=== PATIENT | male | born 1970 | race African-American/Black ===

== ENCOUNTER 2018-12-18 15:03 | Inpatient (IN) ==
[2018-12-18 16:48] LABS: ALLEN TEST YES; BE 2.6 mmoll (-3.0-3.0); BLOOD TYPE ARTERIAL; HCO3-(ACT) 26.8 mmoll (20.0-26.0); METHB 0.7 % (0.0-1.5); O2(CT) 14.5 mL/dL (15.0-23.0); O2HB 90.9 % (95.0-99.0); PO2(98.6) 81 mmHg (60-100); SAMPLE BLOOD; SAO2 98.1 % (95.0-100.0); THB 11.3 g/dL (11.5-17.4); pH(98.6) 7.36 (7.35-7.45)
[2018-12-18 16:51] LABS: MODALITY ROOM AIR
[2018-12-18 16:52] LABS: PCO2(98.6) 51 mmHg (35-45)
--- NOTE | 2018-12-18 16:52 | EKG Report ---
Test Performed on : 12/18/2018 4:45:32 PM Test Reason : MENTAL STATUS CHANGE, BACK PAIN Blood Pressure : / mmHG Vent. Rate : 066 BPM Atrial Rate : 066 BPM P-R Int : 160 ms QRS Dur : 086 ms QT Int : 396 ms P-R-T Axes : 062 -52 040 degrees QTc Int : 415 ms Normal sinus rhythm. Left axis deviation Abnormal ECG When compared with ECG of 31-DEC-2016 16:17, QRS axis shifted left Confirmed by Jose REZA, Bhavin Gagnon ([id number]) on 12/20/2018 11:37:28 AM
[2018-12-18 17:18] LABS: BASO# 0.05 X1000 (0.0-0.2); BASO% 0.6 % (0.0-0.8); EOS# 0.29 X1000 (0.0-0.7); EOS% 3.6 % (0.0-10.0); HEMATOCRIT 35.6 % (42.0-52.0); HEMOGLOBIN 11.6 g/dL (14.0-18.0); LYMPH# 2.65 X1000 (1.2-3.4); LYMPH% 33.2 % (20.5-51.1); MCH 27.4 PG (27-31); MCHC 32.6 g/dL (33-37); MONO# 0.89 X1000 (0.11-0.59); MONO% 11.2 % (1.7-9.3); MPV 9.8 FL (7.4-10.4); NEUT% 51.4 % (42.2-75.2); PLT 240 X1000 (130-400); RBC 4.24 XMIL (4.7-6.1); RDW 14.8 % (11.5-14.5); WBC 7.98 X1000 (4.8-10.8)
[2018-12-18 17:42] LABS: AGAP 8; ALBUMIN 3.4 g/dL (3.5-5.0); ALKALINE PHOSPHATASE 86 U/L (32-122); BUN 13 mg/dL (8-22); CALCIUM 8.2 mg/dL (8.8-10.2); CHLORIDE 103 mmol/L (98-107); COSMO 278; CREATININE 0.9 mg/dL (0.7-1.2); ESTIMATED GFR > 60; GLUCOSE 105 mg/dL (70-104); GOT 24 U/L (10-34); GPT 28 U/L (10-44); POTASSIUM 3.9 mmol/L (3.5-5.1); SODIUM 139 mmol/L (136-145); TCO2 28 mmol/L (25-35); TOTAL BILIRUBIN 0.37 mg/dL (0.20-1.00); TOTAL PROTEIN 6.7 g/dL (6.3-8.3)
--- NOTE | 2018-12-18 17:46 | Diag Imaging Result Doc PS360 ---
EXAM: CT HEAD W/O CONTRAST HISTORY: MENTAL STATUS CHANGE, BACK PAIN TECHNIQUE: CT head without contrast COMPARISON: 12/31/2016 FINDINGS: No parenchymal hemorrhage. No epidural or subdural hematoma. No subarachnoid hemorrhage. No mass identified on this noncontrasted exam. No hydrocephalus. Near complete opacification of the frontal, ethmoid, sphenoid, and right maxillary sinuses. IMPRESSION: 1.No hemorrhage 2.Sinusitis This exam was performed using automated exposure control, adjustment of mA or kV according to patient size, and/or use of iterative reconstruction technique. Electronically signed by Rubio Beyer 12/18/2018 5:44 PM
--- NOTE | 2018-12-18 17:58 | Diag Imaging Result Doc PS360 ---
EXAM: CHEST-2 VIEWS HISTORY: MENTAL STATUS CHANGE, BACK PAIN TECHNIQUE: Chest two views COMPARISON: 12/31/2016 FINDINGS: The lungs are well expanded. The heart is not enlarged. The vessels are not distended. There are no infiltrates. No pleural effusions. IMPRESSION: No acute abnormality. Electronically signed by Rubio Beyer 12/18/2018 5:55 PM
--- NOTE | 2018-12-18 18:04 | Diag Imaging Result Doc PS360 ---
EXAM: CERVICAL SPINE COMPLETE HISTORY: MENTAL STATUS CHANGE, BACK PAIN TECHNIQUE: AP and lateral with obliques, six views COMPARISON: 02/16/2016 FINDINGS: There is now fusion of the C5 and C6 vertebra. Good alignment to the cervical spine. Moderate bone spurring in the lower spine. No precervical soft tissue swelling. No subluxation. IMPRESSION: Moderate degenerative changes. Electronically signed by Rubio Beyer 12/18/2018 6:01 PM
[2018-12-18] MEDS ORDERED: VANCOMYCIN IV PER PHARMACY MISC SCH (18:15)
[2018-12-18] MEDS: D5 1/2 NS + KCL 10 MEQ 1,000 ML IV SCH (20:08)
[2018-12-18] MEDS: NICODERM PATCH TD SCH (20:09)
[2018-12-18] MEDS: ROCEPHIN 1 GM in NS 50 ML IV SCH (20:11)
--- NOTE | 2018-12-18 21:06 | HISTORY AND PHYSICAL ---
HISTORY OF PRESENT ILLNESS: Mr. Aguillon, who is a 48-year-old gentleman, comes to the office with severe obtundedness. According to his who is a nurse, he has been confused for the last 2 days, has been sleeping. He was taken to [facility] Emergency Room for a neck abscess and the abscess was incised and drained, and then he had Septra DS prescribed after the surgery. He has been very drowsy, confused. His asked him about who was the President, and he said Luciano Boothe, and then said Flavia, and he has been confused for other things, too. His was very much worried about him having sepsis. OTHER DETAILS OF PERSONAL, PAST, AND FAMILY HISTORY: Unremarkable, except for history of smoking 1 pack of cigarettes per day for the last 30 years. He is not allergic to any medication. He does not drink. He had past surgical history of cervical spine fusion at C5-C6 and he still has lot of pain in the neck. He used to be dependent on pain on account of this, and then he has been on Suboxone lately. He has not taken his meals for the last 40 hours and has been somewhat dehydrated. REVIEW OF SYSTEMS: Other than this is noncontributory. He denies any history of head trauma or headache. PHYSICAL EXAMINATION: VITAL SIGNS: He weighs to 231 pounds. He is 6 feet 6 inches tall. His temperature is normal, pulse 68 per minute, respiratory rate 18 per minute, blood pressure 118/44. HEAD: Normocephalic. EYES: Pupils PERRLA. Fundus examination not done. NECK: Supple. JVP normal. He has a dressing on the left side of the neck where he had an abscess incised and drained at [facility]. ENT: Examination unremarkable. There is no evidence of lymphadenopathy, thyroid enlargement, pedal edema, calf tenderness, anemia, cyanosis or clubbing. Pedal pulses well felt. BREASTS: Normal. CHEST: Normal on inspection. LUNGS: Clear on auscultation. HEART: PMI in the normal position. Heart sounds normal. No murmur, gallop, or rub noted. ABDOMEN: Nondistended. Hernial orifices normal. No guarding, rigidity, free fluid, masses, or organomegaly. Bowel sounds normal. RECTAL: Deferred. KEY CUTTER: Higher functions: Patient is very obtunded when he wakes up. Sometimes he answers properly and sometimes he does not for time, place and person. Speech is normal. He has severe pain in the neck. Cranial nerves normal. Motor and sensory system examination unremarkable. Deep tendon reflexes normal. Plantars downgoing. SKULL AND SPINE: Examination reveals severe pain on the movements of cervical spine. Movements are restricted. There are no cerebellar signs or signs of meningeal irritation on locomotor exam. SKIN: Unremarkable except for presence of dehydration. IMPRESSION: Mental status change. Patient had an abscess incised and drained in the left side of the neck. He has a history of nicotine dependence and dehydration. He has severe pain in the neck with severe arthritis. cc: Ramon Moreno MD
[2018-12-18] MEDS: TORADOL IV PRN (21:26)
[2018-12-18] MEDS: VANCOMYCIN 2,000 MG in NS 500 ML IV SCH (21:26)
[2018-12-18] MEDS: ULTRAM PO PRN (21:34)
[2018-12-19] MEDS: ULTRAM PO PRN ×4 (04:28→23:56)
[2018-12-19] MEDS: TORADOL IV PRN ×3 (04:28→20:58)
[2018-12-19] MEDS: NEURONTIN PO SCH ×4 (06:25→23:56)
[2018-12-19] MEDS: VANCOMYCIN 2,000 MG in NS 500 ML IV SCH ×2 (08:44→20:58)
[2018-12-19] MEDS: NICODERM PATCH TD SCH (08:44)
[2018-12-19] MEDS ORDERED: NEURONTIN PO SCH (09:00)
--- NOTE | 2018-12-19 09:45 | PROGRESS NOTE ---
DATE: 12/19/2018 SUBJECTIVE: Mr. Aguillon was admitted yesterday with a change in mental status. He had an abscess incised and drained from the left side of the neck. His pCO2 was 51, which goes along with his history of smoking. However, arterial blood gases did not show much elevation in the lactate. He has been on IV Rocephin and vancomycin, and we will continue the current management on him. We are waiting for the culture results. CT scan of the head was negative. Chest x-ray unremarkable. Cervical spine x-ray showed fusion of C5-C6 vertebrae with some degenerative arthritis. We are going to continue his regular medications. -2 cc: Ramon Moreno MD
[2018-12-19] MEDS: THERA M PLUS PO SCH (10:08)
[2018-12-19] MEDS: MOBIC PO SCH (10:08)
[2018-12-19] MEDS: SUBOXONE 2 MG/0.5 MG SL SCH ×2 (10:09→20:56)
[2018-12-19] MEDS: D5 1/2 NS + KCL 10 MEQ 1,000 ML IV SCH ×2 (17:41→17:44)
[2018-12-19] MEDS: ROCEPHIN 1 GM in NS 50 ML IV SCH (20:21)
[2018-12-19] MEDS: TYLENOL PM PO SCH (20:57)
[2018-12-19] MEDS: MELATONIN PO SCH (20:57)
[2018-12-20] MEDS: VANCOMYCIN 2,000 MG in NS 500 ML IV SCH (08:40)
[2018-12-20] MEDS: D5 1/2 NS + KCL 10 MEQ 1,000 ML IV SCH ×3 (08:40→22:21)
[2018-12-20] MEDS: TORADOL IV PRN ×2 (08:41→16:33)
[2018-12-20] MEDS: NICODERM PATCH TD SCH (08:41)
[2018-12-20] MEDS: SUBOXONE 2 MG/0.5 MG SL SCH ×2 (08:41→22:22)
[2018-12-20] MEDS: NEURONTIN PO SCH ×3 (08:41→22:21)
[2018-12-20] MEDS: THERA M PLUS PO SCH (08:42)
[2018-12-20] MEDS: MOBIC PO SCH (08:42)
[2018-12-20] MEDS: ULTRAM PO PRN ×3 (08:44→23:00)
--- NOTE | 2018-12-20 09:30 | PROGRESS NOTE ---
DATE: 12/20/2018 He has some elevation in pCO2 which was 51. He has been a chronic heavy smoker. The wound culture is growing gram-positive cocci. The sensitivity is not back. We will wait for that. He is covered with injection of vancomycin. cc: Ramon Moreno MD
[2018-12-20] MEDS: ROCEPHIN 1 GM in NS 50 ML IV SCH (22:22)
[2018-12-20] MEDS: TYLENOL PM PO SCH (22:24)
[2018-12-20] MEDS: MELATONIN PO SCH (22:24)
[2018-12-21] MEDS: TORADOL IV PRN ×2 (01:10→10:06)
[2018-12-21] MEDS: D5 1/2 NS + KCL 10 MEQ 1,000 ML IV SCH (05:09)
[2018-12-21 07:53] VITALS: BP 144/75
[2018-12-21] MEDS: NEURONTIN PO SCH (08:57)
[2018-12-21] MEDS: THERA M PLUS PO SCH (08:58)
[2018-12-21] MEDS: MOBIC PO SCH (08:59)
[2018-12-21] MEDS: NICODERM PATCH TD SCH (08:59)
[2018-12-21] MEDS: VANCOMYCIN 2,000 MG in NS 500 ML IV SCH ×3 (08:59)
[2018-12-21] MEDS: SUBOXONE 2 MG/0.5 MG SL SCH (09:08)
[2018-12-21] MEDS: ULTRAM PO PRN (10:05)
--- NOTE | 2018-12-21 11:51 | PROGRESS NOTE ---
DATE: 12/21/2018 Mr. Aguillon is doing better. He is alert, oriented. His wound culture grew Staphylococcus epidermidis which is a contaminant, and I personally do not feel like he needs any vancomycin. He can be discharged today. He will take the Septra DS from the previous prescription and will be discharged today. cc: Ramon Moreno MD
--- NOTE | 2018-12-22 14:42 | DISCHARGE SUMMARY ---
ADMISSION DATE: 12/18/2018 DISCHARGE DATE: 12/21/2018 PATIENT PROFILE: Mr. Aguillon was admitted with change in mental status and he was very confused. LAB AND X-RAY DATA: In the hospital, CT scan of the brain did not show any hemorrhage, except showed some evidence of sinusitis. He also had a chest x-ray done which did not reveal any acute abnormality. Cervical spine x-ray showed fusion between C5-C6 and otherwise severe degenerative arthritis in the spine. EKG was unremarkable. The culture studies initially grew Staph which turned out to be epidermidis. DISPOSITION: He has been discharged and advised to take Septra DS for about 10 to 15 days. He also attends [facility] which he needs appointment for. We will try to do that at a later date. COURSE IN THE HOSPITAL: He was treated with IV antibiotics, namely Rocephin and vancomycin. He continued better. Initially had some dehydration. IV fluid was given and mental status improved. The culture studies came back negative. We decided to send him home. He is alert, oriented today. CT scan of the brain has been negative. IMPRESSION: 1. Acute mental status change. 2. Abscess in the left side of the neck. 3. Severe degenerative arthritis of the cervical spine. cc: Ramon Moreno MD
== END 2018-12-21 13:23 | disposition home or self-care (01) | DRG 948 ==
LOC: DIRADM 15:03 → 4N 15:35
PROVIDERS: ADMIT Internal Medicine; ATTEND Internal Medicine
CPT/HCPCS: 70450; 71020; 71046; 72050; 80053; 80202; 82805; 85025; 87040; 87070; 87077; 87186; 93005; 93010; 94760; 94761; A9270; J0696; J1885; J3370; J3480; J7040